=== PATIENT | female | born 1950 | race Caucasian/White ===

== ENCOUNTER → 2016-09-28 | Outpatient (CLI) | payer OTHER ==
[~2016-09-28] MED LIST: ADVAIR 250-501 EACH IH; ADVAIR HFA 230M12 GM INH; ADVAIRDISKUS; AGGRENOX CAPSU1 EACH PO; ALBUTEROL INH; ALLEGRA180 MG PO; ALLOPURINOL 30300 M2 PO; APEDRIA SC; APIDRA INSULIN PUMP; ASPIR 8181 MG PO; ASPIRIN325 PO; ASPIRIN81 M2 PO; AUGMENTIN 875875 M1 PO; B COMPLEX-VITA1 EACH PO; CALCIUM 600 +1 EAC1 PO; CARTIA XT300 M1 PO; CEFDINIR300 MG PO; CIPROFLOXACIN500 M3 GT; COLESTIPOL HCL1 G1 PO; COUMADIN 1MG TAB1 M1 PO; COUMADIN 5 MG TA5 M1 PO; DEMADEX20 MG PO; DEXILANT60 MG PO; DILTIAZEM 24HR300 M1 PO; DILTIAZEM ER300 MG PO; DIOVAN 80 MG TA80 M1 PO; DIOVAN320 MG PO; ELEMENTAL CALC600 MG PO; FERREX-150 PLU150 MG PO; FISH OIL 1,0001 EAC5 PO; FISH OIL 1,0001 EAC7 PO; FLONASE 0.05%50 MCG NASAL; FOSAMAX 70 MG T70 M1 PO; FUROSEMIDE 40 M40 M1 PO; GLUMETZA PO; HYDROCHLOROTHIA25 M1 PO; HYDROCHLOROTHIA25 M2 PO; HYDROCODON-ACE1 EAC7 PO; INSULIN SYRING MC; KLOR-CON 1010 MEQ PO; LANTUS SC; LIPITOR40 MG PO; LIVALO4 MG PO; LOPRESSOR 50 MG50 M1 PO; LOPRESSOR50 MG PO; LOVENOX PO; MAGNES; MAGOX 400400 MG PO; NITROFURANTOIN100 MG PO; NITROSTAT0.4 MG PO; OMEPRAZOLE40 MG PO; PERCOCET 5-3251 EACH PO; PHISOHEX148 ML TOP; PREDNISONE 10 M10 M1 PO; PROAIR HFA8.5 GM INH; REGLAN 10 MG TA10 M1 PO; REGLAN 10 MG TA10 MG PO; SINGULAIR 10 MG10 M1 PO; TOPROL XL50 MG PO; UNICOMPLEX M TA1 TA1 PO; VITAMIN C 250250 MG PO; VYTORIN 10-401 EACH PO; ZINC PO; ZYRTEC PO; ZYRTEC10 M2 PO; [UNRECOGNIZED DRUG - OTHER] SUBQ
== END ==
LOC: CAT
DX: J32.9 Chronic sinusitis, unspecified (principal)

== ENCOUNTER → 2017-12-19 | Outpatient (CLI) | payer OTHER | LOC: RAD 09:04 | DX: I51.7 Cardiomegaly (principal); J98.4 Other disorders of lung ==

== ENCOUNTER → 2019-01-07 | Outpatient (CLI) | payer OTHER | LOC: ULTRA 09:56 | DX: I82.511 Chronic embolism and thrombosis of right femoral vein (principal) ==

== ENCOUNTER → 2019-02-20 | Outpatient (CLI) | payer OTHER ==
[~2019-02-20] MED LIST changes: +ADMELOG100 UNIT/1 SUBQ; +ATORVASTATIN CA80 MG PO; +CARAFATE 1 GM TA1 GM PO; +COZAAR 25 MG TA25 M1 PO; +COZAAR 50 MG TA50 M1 PO; +METOPROLOL SUCC50 MG PO; +PEPCID40 MG PO; +REGLAN 5 MG TAB5 MG PO; +SPIRONOLACTONE25 MG PO; +VITAMIN D22000 UNIT PO; +XARELTO15 MG PO; +XARELTO20 MG PO
== END ==
LOC: SJCVC 10:30
DX: Z51.81 Encounter for therapeutic drug level monitoring (principal); I25.810 Atherosclerosis of coronary artery bypass graft(s) without angina pectoris; I10 Essential (primary) hypertension; K21.9 Gastro-esophageal reflux disease without esophagitis; E10.9 Type 1 diabetes mellitus without complications; J44.9 Chronic obstructive pulmonary disease, unspecified; M81.0 Age-related osteoporosis without current pathological fracture; E78.5 Hyperlipidemia, unspecified; E66.9 Obesity, unspecified; Z68.43 Body mass index [BMI] 50.0-59.9, adult; Z95.1 Presence of aortocoronary bypass graft; Z79.01 Long term (current) use of anticoagulants; Z79.82 Long term (current) use of aspirin; Z79.4 Long term (current) use of insulin; Z86.711 Personal history of pulmonary embolism; Z86.718 Personal history of other venous thrombosis and embolism

== ENCOUNTER → 2019-03-11 | Outpatient (CLI) | payer OTHER ==
[~2019-03-11] MED LIST changes: -ADMELOG100 UNIT/1 SUBQ; -ATORVASTATIN CA80 MG PO; -CARAFATE 1 GM TA1 GM PO; -COZAAR 25 MG TA25 M1 PO; -COZAAR 50 MG TA50 M1 PO; -METOPROLOL SUCC50 MG PO; -PEPCID40 MG PO; -REGLAN 5 MG TAB5 MG PO; -SPIRONOLACTONE25 MG PO; -VITAMIN D22000 UNIT PO; -XARELTO15 MG PO; -XARELTO20 MG PO
== END ==
LOC: SJCVCIMAG 08:21
DX: I87.2 Venous insufficiency (chronic) (peripheral) (principal); Z78.9 Other specified health status

== ENCOUNTER → 2019-03-28 | Outpatient (CLI) | payer OTHER | LOC: SJCVC 13:19 | DX: Z51.81 Encounter for therapeutic drug level monitoring (principal); I25.810 Atherosclerosis of coronary artery bypass graft(s) without angina pectoris; K21.9 Gastro-esophageal reflux disease without esophagitis; E11.9 Type 2 diabetes mellitus without complications; J44.9 Chronic obstructive pulmonary disease, unspecified; I10 Essential (primary) hypertension; M81.0 Age-related osteoporosis without current pathological fracture; E78.5 Hyperlipidemia, unspecified; E66.9 Obesity, unspecified; Z68.43 Body mass index [BMI] 50.0-59.9, adult; Z86.711 Personal history of pulmonary embolism; Z95.1 Presence of aortocoronary bypass graft ==

== ENCOUNTER → 2019-04-04 | Outpatient (CLI) | payer OTHER ==
[~2019-04-04] MED LIST changes: +ADMELOG100 UNIT/1 SUBQ; +ATORVASTATIN CA80 MG PO; +CARAFATE 1 GM TA1 GM PO; +COZAAR 25 MG TA25 M1 PO; +COZAAR 50 MG TA50 M1 PO; +METOPROLOL SUCC50 MG PO; +PEPCID40 MG PO; +REGLAN 5 MG TAB5 MG PO; +SPIRONOLACTONE25 MG PO; +VITAMIN D22000 UNIT PO; +XARELTO15 MG PO; +XARELTO20 MG PO
== END ==
LOC: SJCVC 10:42
DX: Z51.81 Encounter for therapeutic drug level monitoring (principal); K21.9 Gastro-esophageal reflux disease without esophagitis; E11.9 Type 2 diabetes mellitus without complications; J44.9 Chronic obstructive pulmonary disease, unspecified; I10 Essential (primary) hypertension; M81.0 Age-related osteoporosis without current pathological fracture; M19.90 Unspecified osteoarthritis, unspecified site; E78.5 Hyperlipidemia, unspecified; I25.810 Atherosclerosis of coronary artery bypass graft(s) without angina pectoris; E66.9 Obesity, unspecified; Z68.43 Body mass index [BMI] 50.0-59.9, adult; Z95.1 Presence of aortocoronary bypass graft; Z79.01 Long term (current) use of anticoagulants; Z86.711 Personal history of pulmonary embolism; Z79.899 Other long term (current) drug therapy; Z79.82 Long term (current) use of aspirin

== ENCOUNTER → 2019-04-07 | Outpatient (CLI) | payer OTHER ==
[2019-04-07 13:32] LABS: CREATININE 1.5 mg/dL (0.6-1.0)
== END ==
LOC: CAT 12:26
PROVIDERS: Nurse Practitioner
DX: J90 Pleural effusion, not elsewhere classified (principal); I25.10 Atherosclerotic heart disease of native coronary artery without angina pectoris; J84.10 Pulmonary fibrosis, unspecified; M47.814 Spondylosis without myelopathy or radiculopathy, thoracic region; M48.04 Spinal stenosis, thoracic region; K44.9 Diaphragmatic hernia without obstruction or gangrene; K42.9 Umbilical hernia without obstruction or gangrene; Z98.890 Other specified postprocedural states

== ENCOUNTER 2019-04-22 11:22 | Inpatient (IN) | payer OTHER ==
[~2019-04-22] VITALS: Ht 154.9 cm; Wt 112.0 kg
[~2019-04-22 11:22] MED LIST changes: -ADMELOG100 UNIT/1 SUBQ; -ATORVASTATIN CA80 MG PO; -CARAFATE 1 GM TA1 GM PO; -COZAAR 25 MG TA25 M1 PO; -COZAAR 50 MG TA50 M1 PO; -METOPROLOL SUCC50 MG PO; -PEPCID40 MG PO; -REGLAN 5 MG TAB5 MG PO; -SPIRONOLACTONE25 MG PO; -VITAMIN D22000 UNIT PO; -XARELTO15 MG PO; -XARELTO20 MG PO
[2019-04-22 11:24] VITALS: BP 135/62
[2019-04-22] MEDS ORDERED: COZAAR 25 MG TA25 M1 PO (12:02)
[2019-04-22] MEDS ORDERED: ADMELOG100 UNIT/1 SUBQ (12:04)
[2019-04-22] MEDS ORDERED: REGLAN 5 MG TAB5 MG PO (12:05)
[2019-04-22] MEDS ORDERED: PEPCID40 MG PO (12:05)
[2019-04-22] MEDS ORDERED: VITAMIN D22000 UNIT PO (12:07)
[2019-04-22] MEDS ORDERED: SPIRONOLACTONE25 MG PO (12:07)
[2019-04-22] MEDS ORDERED: CARAFATE 1 GM TA1 GM PO (12:07)
[2019-04-22 12:10] LABS: ABSOLUTE NEUTROPHILS 9.3 thou/uL (1.4-8.2); BASOPHILS 0.5 % (0.0-2.0); HEMATOCRIT 37.6 % (37.0-47.0); HEMOGLOBIN 11.7 gm/dL (12.0-15.0); LYMPHOCYTES 8.6 % (24.0-44.0); MCH 26.2 pg (26.0-34.0); MCHC 31.2 g/dL (28.0-37.0); MONOCYTES 8.6 % (1.0-8.0); PLATELET COUNT 318 thou/uL (150-400); POLYS 81.3 % (36.0-66.0); RBC 4.47 mil/uL (4.20-5.00); RDW 16.3 % (10.5-14.5); WBC 11.5 thou/uL (4.0-11.0)
[2019-04-22 12:20] LABS: APTT 30.2 Seconds (24.5-32.8); INR 1.4
[2019-04-22 12:22] LABS: ANION GAP 11 mmol/L (7-16); BUN 20 mg/dL (7-18); CALCIUM 8.6 mg/dL (8.5-10.1); CHLORIDE 102 mmol/L (98-107); CO2 22 mmol/L (21-32); CREATININE 1.4 mg/dL (0.6-1.0); GLUCOSE 191 mg/dL (74-106); POTASSIUM 4.8 mmol/L (3.5-5.1); SODIUM 135 mmol/L (136-145)
[2019-04-22 12:32] LABS: ALBUMIN 2.5 g/dL (3.4-5.0); SGOT 21 U/L (15-37); SGPT 8 U/L (30-65); TOTAL BILIRUBIN 0.5 mg/dL (<0.1-1.0); TOTAL PROTEIN 6.7 g/dL (6.4-8.2); TROPONIN-I <0.06 ng/mL (<0.06)
--- NOTE | 2019-04-22 14:30 | EKG ---
[facility] [address] [address] [employer] [place] [address] ELECTROCARDIOGRAM REPORT Name: JENNY DAVENPORT Room #: 170-9 ADM IN M.R.#: [id number] Admission: 04/22/19 Attend Phys: Michael Maxwell MD Discharge: Date of : 54 Report #: [id number] THIS REPORT FOR: cc: Michael Maxwell MD, Neal A. MD Lundgren,Juan Luis Lorenz MD [facility] ~ THIS REPORT FOR: //name// [facility] ED Test Date: 2019-04-22 Test Time: 11:34:10 Pat Name: JENNY DAVENPORT Department: Room: 170 Gender: F Continuous Improvement Director: RAZ : 1950 Requested By: Mychal Fitch Order Number: [id number] MD: Juan Luis Lopez Measurements Intervals Wall Rate: 97 P: 18 TX: 126 QRS: 5 QRSD: 85 T: 64 QT: 328 QTc: 417 Interpretive Statements Sinus tachycardia Poor R wave progression Nonspecific T wave abnormality Baseline wander in lead(s) II,III,aVF,V3,V4,V5 Compared to ECG 06/12/2012 07:30:28 Right bundle-branch block no longer present Electronically Signed On 04-22-2019 14:29:06 CDT by Juan Luis Lopez [email or web address] <ELECTRONICALLY SIGNED> By: Juan Luis Lopez MD, [facility] 04/22/19 1429 1134 1134 Juan Luis Lopez MD, [facility] /EPI
[2019-04-22 14:45] VITALS: BP 119/57
[2019-04-22 15:41] VITALS: BP 124/55
[2019-04-22 16:10] VITALS: BP 143/47
--- NOTE | 2019-04-22 17:11 | 2DMMODE ---
[facility] [place] [address] 2 D/M-MODE ECHOCARDIOGRAM Name: JENNY DAVENPORT Room #: 208-P ADM IN M.R.#: [id number] Admission: 04/22/19 Attend Phys: Michael Maxwell MD Discharge: Date of : 54 Report #: [id number] THIS REPORT FOR: cc: Michael Maxwell MD, Neal A. MD Lundgren,Juan Luis Lorenz MD [facility] ~ APPROVED REPORT Study performed: 04/22/2019 15:27:59 EXAM: Comprehensive 2D, Doppler, and color-flow Echocardiogram Patient Location: ER Room #: 9 Status: routine BSA: 2.09 HR: 86 bpm BP: 124/55 mmHg Rhythm: NSR Other Information Study Quality: Adequate Technically limited study due to body habitus. Risk Factors: Cardiac Risk Factors: DM, Hyperlipidemia, HTN Indications Pulmonary Embolism CAD Hypertension/HDD S/P CABG x1 (2013) 2D Dimensions IVSd: 12.14 (7-11mm) LVOT Diam: 19.00 (18-24mm) LVDd: 42.88 mm PWd: 11.86 (7-11mm) Ascending Ao: 31.33 (22-36mm) LVDs: 31.72 (25-40mm) Aortic Root: 31.10 mm LV Single Plane 4CH: 50.49 % LV Single Plane 2CH: 54.21 % Volumes Left Atrial Volume (Systole) Single Plane 4CH: 39.44 mL Single Plane 2CH: 33.34 mL [facility] [address] [place] [address] 2 D/M-MODE ECHOCARDIOGRAM Name: JENNY DAVENPORT Room #: 208-P ADM IN M.R.#: [id number] Admission: 04/22/19 Attend Phys: Michael Maxwell, Discharge: Date of : 54 Report #: [id number] ESV Index: 20.00 mL/m2 Aortic Valve AoV Peak Candelario.: 1.60 m/s AO Peak Gr.: 10.24 mmHg LVOT Max P.42 mmHg LVOT Max V: 1.05 m/s KAROL Vmax: 1.82 cm2 Mitral Valve E/A Ratio: 0.8 MV Decel. Time: 179.23 ms MV E Max Candelario.: 1.12 m/s MV A Candelario.: 1.37 m/s MV PHT: 51.98 ms IVRT: 65.74 ms TDI E/Lateral E': 14.00 E/Medial E': 22.40 Medial E' Candelario.: 0.05 m/s Lateral E' Candelario.: 0.08 m/s Pulmonary Valve PV Peak Candelario.: 1.06 m/s PV Peak Gr.: 4.49 mmHg Pulmonary Vein P Vein S: 0.68 m/s P Vein A: 0.24 m/s P Vein D: 0.47 m/s P Vein A Dur.: 69.2 msec P Vein S/D Ratio: 1.45 Tricuspid Valve TR Peak Candelario.: 2.73 m/s TR Peak Gr.: 29.81 mmHg Left Ventricle The left ventricle is normal size. There is normal LV segmental wall motion. Mild concentric left ventricular hypertrophy. Left ventricular systolic function is normal. The left ventricular ejection fraction is within the normal range. LVEF is 50-55%. Mild diastolic dysfunction is present (impaired relaxation pattern). Right Ventricle The right ventricle is normal size. The right ventricular systolic function is normal. [facility] [address] [place] [address] 2 D/M-MODE ECHOCARDIOGRAM Name: JENNY DAVENPORT Room #: 208-P [facility] IN M.R.#: [id number] Admission: 04/22/19 Attend Phys: Michael Maxwell, Discharge: Date of : 54 Report #: [id number] The left atrium size is normal. The right atrium size is normal. Aortic Valve The aortic valve is normal in structure. No aortic regurgitation is present. There is no aortic valvular stenosis. Mitral Valve The mitral valve is normal in structure. There is no mitral valve regurgitation noted. No evidence of mitral valve stenosis. Tricuspid Valve The tricuspid valve is normal in structure. Mild tricuspid insufficiency. Pulmonary artery pressure of 35 mmHg Pulmonic Valve The pulmonary valve is normal in structure. Trace pulmonic regurgitation. Great Vessels The aortic root is normal in size. The ascending aorta is normal in size. IVC is not well visualized. Pericardium There is no pericardial effusion. <Conclusion> Left ventricular systolic function is normal. There is normal LV segmental wall motion. LVEF is 50-55%. Mild diastolic dysfunction The aortic valve is normal in structure. No aortic regurgitation or stenosis The mitral valve is normal in structure. No mitral valve regurgitation. Mild tricuspid insufficiency. Pulmonary artery pressure of 35 mmHg There is no pericardial effusion. <ELECTRONICALLY SIGNED> By: Juan Luis Lopez MD, FACC 04/22/191709 09 09 Juan Luis Lopez MD, FACC /INF
[2019-04-22 20:24] VITALS: BP 143/53
[2019-04-23] VITALS: BP 122/57
[2019-04-23 03:01] LABS: HEMATOCRIT 33.9 % (37.0-47.0); HEMOGLOBIN 10.7 gm/dL (12.0-15.0); MCH 26.4 pg (26.0-34.0); MCHC 31.6 g/dL (28.0-37.0); MCV 83.6 fL (80.0-100.0); RBC 4.06 mil/uL (4.20-5.00); RDW 16.3 % (10.5-14.5); WBC 9.3 thou/uL (4.0-11.0)
[2019-04-23 03:06] LABS: CALCIUM 8.5 mg/dL (8.5-10.1); CREATININE 1.4 mg/dL (0.6-1.0); POTASSIUM 4.3 mmol/L (3.5-5.1)
[2019-04-23 05:17] VITALS: BP 160/79
[2019-04-23 11:30] VITALS: BP 135/50
[2019-04-23 16:00] VITALS: BP 132/46
[2019-04-23 20:02] VITALS: BP 115/37
[2019-04-24] VITALS (8 sets, daily range): BP systolic 109–157; BP diastolic 47–83
[2019-04-24 10:48] LABS: INR 1.2; PROTIME 12.5 Seconds (9.3-11.4)
[2019-04-24 11:10] LABS: APTT 29.4 Seconds (24.5-32.8)
[2019-04-25 04:45] VITALS: BP 152/71
[2019-04-25 08:10] VITALS: BP 142/72
[2019-04-25 11:25] VITALS: BP 132/55
[2019-04-25 14:16] LABS: HEMATOCRIT 34.1 % (37.0-47.0); MCH 26.7 pg (26.0-34.0); MCHC 32.1 g/dL (28.0-37.0); MCV 83.3 fL (80.0-100.0); RBC 4.1 mil/uL (4.20-5.00); RDW 16.6 % (10.5-14.5); WBC 9.7 thou/uL (4.0-11.0)
[2019-04-25] MEDS ORDERED: METOPROLOL SUCC50 MG PO (14:25)
[2019-04-25] MEDS ORDERED: COZAAR 50 MG TA50 M1 PO (14:25)
[2019-04-25] MEDS ORDERED: ATORVASTATIN CA80 MG PO (14:25)
[2019-04-25] MEDS ORDERED: DEMADEX20 MG PO (14:25)
[2019-04-25] MEDS ORDERED: XARELTO20 MG PO ×2 (14:31→15:37)
[2019-04-25] MEDS ORDERED: XARELTO15 MG PO ×2 (14:31→15:37)
[2019-04-25 15:05] VITALS: BP 132/55
--- NOTE | 2019-04-29 15:08 | PATH ---
[facility] [address] [place] [address] PATHOLOGY RPT PROCEDURE Name: UTE DAVENPORT Room #: 208-P DIS IN M.R.#: [id number] Admission: 04/22/19 Date of : 54 Discharge: 04/25/19 Report #: [id number] Path Case #: [id number] [facility] Accession Number: [id number] . 01 Material submitted: . liver - FOCAL LIVER MASS . 01 Clinical history: . Bilateral PE; focal liver mass . 02 Diagnosis: Liver mass, needle core biopsy: - FINDINGS COMPATIBLE WITH MODERATE TO POORLY-DIFFERENTIATED HEPATOCELLULAR CARCINOMA ASSOCIATED WITH ABUNDANT NECROSIS. - One fragment showing renal glomeruli and tubules compatible with renal cortex; negative for malignancy. - Fragments of reactive mature adipose tissue; negative for malignancy. . (IUV:mml; 04/29/2019) QL 04/29/2019 1427 Local . 02 Comment: Examination shows malignant epithelioid neoplasm and intervening large areas of necrosis. Unremarkable hepatic (non-neoplastic hepatic) parenchyma is not identified. . Multiple properly-controlled immunohistochemical stains are performed on block A3. The tumor shows weak reactivity with Glypican in scattered foci. Polyclonal CEA is reactive within most of the neoplasm. Hep-Par, TTF-1, CD117 are non-reactive. CK7 shows strong membranous reactivity within the neoplasm consistent with the diagnosis of carcinoma. Properly-controlled special stain colloidal iron shows no reactivity (iron staining) within the neoplasm. Findings are supportive of a moderately to poorly differentiated hepatocellular carcinoma. A neoplasm of renal origin is excluded with the non-reactive immunohistochemical stains along with a metastatic lung adenocarcinoma. . Dr. Yessi Cooper and Dr. Amelia Holland have seen strategic partnership representative slides of this case and concur with the diagnosis rendered. Findings of this case were discussed with Dr. Karl Maldonado at 12:20 p.m. on 04/25/2019. . (IUV:mml; 04/29/2019) . 02 Electronically signed: . Heike Hahn MD, Pathologist NPI- [id number] . [address] [place] [address] PATHOLOGY RPT PROCEDURE Name: UTE DAVENPORT Room #: 208-P DIS IN M.R.#: [id number] Admission: 04/22/19 Date of : 54 Discharge: 04/25/19 Report #: [id number] Path Case #: [id number] Gross description: . The specimen is received in formalin, labeled "Ute Davenport, focal liver biopsy". Received are four needle cores of pale lpummer soft tissue ranging in length from 0.9 to 1.8 cm in length by 0.1 cm in diameter. The specimen is submitted entirely in cassette A1 through A3. (CAA; 04/24/2019) QAC/QAC 04/24/2019 1725 Local . 02 Pathologist provided ICD-10: C22.9 . 02 CPT . 042033, C33820, A45051 Specimen Comment: A courtesy copy of this report has been sent to [phone] Specimen Comment: Report sent to Performed at: [address], [place] [id number] MD Chapin Espino MD Phone: [phone] Performed at: [address] [id number] MD Heike Hahn MD Phone: [phone]
== END 2019-04-25 16:58 | disposition home or self-care (01) | DRG 175 ==
LOC: ER 11:22 → 2N 14:27 → EROBS 14:27 → 2N 15:41
PROVIDERS: Emergency Medicine; Internal Medicine Pulmonary Disease; ADMIT Family Medicine
PROC: 0FB13ZX Excision of Right Lobe Liver, Percutaneous Approach, Diagnostic (ICD-10-PCS; principal; 2019-04-24)
DX: I26.99 Other pulmonary embolism without acute cor pulmonale (principal); E43 Unspecified severe protein-calorie malnutrition; N17.9 Acute kidney failure, unspecified; Z68.42 Body mass index [BMI] 45.0-49.9, adult; I25.10 Atherosclerotic heart disease of native coronary artery without angina pectoris; R91.8 Other nonspecific abnormal finding of lung field; K21.9 Gastro-esophageal reflux disease without esophagitis; J45.909 Unspecified asthma, uncomplicated; I48.0 Paroxysmal atrial fibrillation; E78.5 Hyperlipidemia, unspecified; I27.20 Pulmonary hypertension, unspecified; G47.33 Obstructive sleep apnea (adult) (pediatric); E11.22 Type 2 diabetes mellitus with diabetic chronic kidney disease; I12.9 Hypertensive chronic kidney disease with stage 1 through stage 4 chronic kidney disease, or unspecified chronic kidney disease; N18.3 Chronic kidney disease, stage 3 (moderate); D64.9 Anemia, unspecified; R16.0 Hepatomegaly, not elsewhere classified; J44.9 Chronic obstructive pulmonary disease, unspecified; Z86.718 Personal history of other venous thrombosis and embolism; Z79.01 Long term (current) use of anticoagulants; Z90.710 Acquired absence of both cervix and uterus; Z90.89 Acquired absence of other organs; Z79.4 Long term (current) use of insulin; Z90.49 Acquired absence of other specified parts of digestive tract; I25.2 Old myocardial infarction; Z95.5 Presence of coronary angioplasty implant and graft; Z86.711 Personal history of pulmonary embolism; Z79.82 Long term (current) use of aspirin; Z79.899 Other long term (current) drug therapy; Z88.2 Allergy status to sulfonamides; Z88.8 Allergy status to other drugs, medicaments and biological substances; Z91.040 Latex allergy status; Z95.1 Presence of aortocoronary bypass graft
CPT/HCPCS: 10081

== ENCOUNTER → 2019-05-19 | Outpatient (CLI) | payer OTHER ==
[~2019-05-19] MED LIST changes: +ADMELOG100 UNIT/1 SUBQ; +ATORVASTATIN CA80 MG PO; +CARAFATE 1 GM TA1 GM PO; +COZAAR 25 MG TA25 M1 PO; +COZAAR 50 MG TA50 M1 PO; +METOPROLOL SUCC50 MG PO; +PEPCID40 MG PO; +REGLAN 5 MG TAB5 MG PO; +SPIRONOLACTONE25 MG PO; +VITAMIN D22000 UNIT PO; +XARELTO15 MG PO; +XARELTO20 MG PO
== END ==
LOC: SJCVCIMAG 13:27
DX: R94.31 Abnormal electrocardiogram [ECG] [EKG] (principal); I07.1 Rheumatic tricuspid insufficiency; I11.9 Hypertensive heart disease without heart failure; I26.99 Other pulmonary embolism without acute cor pulmonale; E78.5 Hyperlipidemia, unspecified; I82.409 Acute embolism and thrombosis of unspecified deep veins of unspecified lower extremity; I25.10 Atherosclerotic heart disease of native coronary artery without angina pectoris; E11.9 Type 2 diabetes mellitus without complications; J44.9 Chronic obstructive pulmonary disease, unspecified; I48.91 Unspecified atrial fibrillation; Z95.1 Presence of aortocoronary bypass graft

== ENCOUNTER 2019-06-09 10:10 | Inpatient (IN) | payer OTHER ==
[~2019-06-09] VITALS: Ht 149.9 cm; Wt 109.8 kg
[2019-06-09 10:24] VITALS: BP 123/48
[2019-06-09 11:24] LABS: ABSOLUTE NEUTROPHILS 7.8 thou/uL (1.4-8.2); WBC 9.9 thou/uL (4.0-11.0)
[2019-06-09 11:26] LABS: BASOPHILS 0.5 % (0.0-2.0); HEMATOCRIT 34.4 % (37.0-47.0); HEMOGLOBIN 11.1 gm/dL (12.0-15.0); MCH 26.2 pg (26.0-34.0); MCHC 32.2 g/dL (28.0-37.0); MCV 81.4 fL (80.0-100.0); MONOCYTES 9.3 % (1.0-8.0); PLATELET COUNT 414 thou/uL (150-400); POLYS 79.2 % (36.0-66.0); RBC 4.23 mil/uL (4.20-5.00); RDW 17.1 % (10.5-14.5)
[2019-06-09 11:29] LABS: ANION GAP 10 mmol/L (7-16); BUN 24 mg/dL (7-18); CALCIUM 7.9 mg/dL (8.5-10.1); CHLORIDE 105 mmol/L (98-107); CO2 20 mmol/L (21-32); CREATININE 1.5 mg/dL (0.6-1.0); GLUCOSE 113 mg/dL (74-106); POTASSIUM 4.5 mmol/L (3.5-5.1); SODIUM 135 mmol/L (136-145)
[2019-06-09 11:39] LABS: ALBUMIN 1.9 g/dL (3.4-5.0); SGOT 17 U/L (15-37); SGPT 10 U/L (30-65); TOTAL BILIRUBIN 0.5 mg/dL (<0.1-1.0); TROPONIN-I <0.06 ng/mL (<0.06)
[2019-06-09 11:48] LABS: BE(vivo) -6.5 mmol/L (-2 to +3); HCO3 17.6 mmol/L (22.0-26.0); PCO2 VENOUS 30.5 mmHg (41.0-51.0); PO2 VENOUS 43.1 mmHg (35.0-45.0)
[2019-06-09 13:30] VITALS: BP 106/53
[2019-06-09 13:43] VITALS: BP 106/53
[2019-06-09 14:23] VITALS: BP 147/48
[2019-06-09 20:04] VITALS: BP 127/60
--- NOTE | 2019-06-10 02:54 | NUR ---
PATIENT ASSESASED AND IS ALERT X 4. SKIN WARM AND DRY. RESP EVEN AND UNLABORED.IS SOA. 02 SAT 100%. 02 STARTED AT 2LNC. UP AD CHERRIE IN ROOM. SHE HAS BEEN SOA FOR 1 MONTH. WILL HAVE A RIGHT THORACENTESIS IN AM. HAS A POOR APPETITE. COVID CAME BACK TODAY NEGATIVE. NOTIFIED AND INSPECTOR FINAL ASSEMBLY MECHANICAL. INSULIN PUMP IS OFF ED TAKEN IT OFF.IS ON CC TELE. TELE-SHOWS NSR. MHAS A SHALLOW RESPIRATIONS. VOIDS WELL. IV SITE HEALTHY. DOES USE BIMPAP AT HOME. REMAINS ON 2LNC. LESS SOA AFTER 02 STARTED. BLOOD SUGAR IS 354. 20 UNITS GIVEN PER PROTOCOL. REMAINS ALERT X4. RESTING READY FOR BED. TAKES MEDIATION WELL. COMNT PLAN OF CARE. LEFT EJ PATENT. AND FLUSHES WELL.
[2019-06-10 04:00] VITALS: BP 121/50
--- NOTE | 2019-06-10 07:58 | EKG ---
[facility] [place] [address] ELECTROCARDIOGRAM REPORT Name: JENNY DAVENPORT Room #: 357-P ADM IN M.R.#: [id number] Admission: 06/09/19 Attend Phys: Michael Maxwell MD Discharge: Date of : 54 Report #: [id number] THIS REPORT FOR: cc: Michael Maxwell MD, Neal A. MD Lundgren,Juan Luis Lorenz MD [facility] ~ THIS REPORT FOR: //name// [facility] ED Test Date: 2019-06-09 Test Time: 10:44:05 Pat Name: JENNY DAVENPORT Department: Room: Gender: F Preassembler [employer]: nina : 1950 Requested By: Mychal Fitch Order Number: [id number] MD: Juan Luis Lopez Measurements Intervals [place]ell Rate: 87 P: -8 FL: 163 QRS: -6 QRSD: 83 T: 57 QT: 401 QTc: 483 Interpretive Statements Sinus rhythm Low voltage Nonspecific T abnormalities, anterior leads Compared to ECG 04/22/2019 11:34:10 No significant change was found Electronically Signed On 06-10-2019 7:56:27 CDT by Juan Luis Lopez [email or web address] <ELECTRONICALLY SIGNED> By: Juan Luis Lopez MD, [facility] 06/10/19 0756 1044 1044 Juan Luis Lopez MD, [facility] /EPI
[2019-06-10 08:07] VITALS: BP 103/47
[2019-06-10 11:20] LABS: APTT 41.3 Seconds (24.5-32.8); FIBRINOGEN 383.5 mg/dL (210-360); INR 1.7; PROTIME 17.4 Seconds (9.3-11.4)
--- NOTE | 2019-06-10 13:30 | NUR ---
INITIAL ASSESSMENT: SW reviewed chart and spoke with nursing. Pt was admitted from home due to shortness of air/stomach pain. Pt is in Enhanced Isolation. COVID-19 test is negative. Pt with hx of lung cancer. Pt to have a thoracentesis tomorrow. SW spoke with pt via phone. Introduced role of SW. Pt is alert/orientated x 4. Pt reports she lives at home with her and dtr. Prior to admission, pt was independent with ADLs. No us of DME. Pt's PCP is Dr. Maxwell. Pt has used HH in the past many years ago. Unable to recall name of provider. Pt's plan is to discharge home when medically stable. SW is following to assist as needed with discharge planning.
--- NOTE | 2019-06-10 19:19 | NUR ---
Assumed patient care at 0715. Patient's vitals signs have been stable. She has been on Room Air until approximately 1500. At this time she began to complain of "stomach bloat" and "discomfort" related to this and she began to get anxious. This nurse applied O2 at 2 Liters per nasal cannula; this has been helpful. Patient is CC Tele with Normal Sinus Rythym. IV continues as patent in left EJ. She is alert and oriented x's 4. Patient has been up ad vincenzo. Results "Negative" for COVID Virus x's 1; she is no longer on Special Precautions. Blood Sugars have been in the 230's to 250's, requiring Sliding Scale Insulin as ordered. Appetite was good this am, has decreased throughout the day from the abdominal discomfort. Xalreto discontinued for the time being. Patient is to have a Thoracentesis tomorrow am. Report given to on-coming nurse.
[2019-06-10 19:21] VITALS: BP 125/44
--- NOTE | 2019-06-10 20:07 | NUR ---
PT SITTING IN BED WATCHING TV REPORTED FEELING RESTLESS BLOATED AND . PT INDEPENDENT WITH AMBULATION. O2 PER NC FOR ANXIETY. OBESE, BLE EDEMA +3, RLE +4. LUNGS DIMINISHED IN BASES. DR CABRAL PAGED AND PRRamírez ATIVAN ORDER OBTAINED AND STAT KUB. PT REQUESTED COFFEE AND PROVIDED. PT SMILING TALKING NOT SOA WITH CONVERSATION. WILL TRANSFER TO LATER THIS SHIFT.
--- NOTE | 2019-06-10 21:26 | NUR ---
REPORT GIVEN TO Sendy MIDDLETON. PT HAD ALL OF HER BELONGINGS RETURNED TO HER.
[2019-06-11 00:07] VITALS: BP 150/57
[2019-06-11 04:36] VITALS: BP 136/53
[2019-06-11 08:00] VITALS: BP 138/46
[2019-06-11 10:23] LABS: SOURCE CHEST FLUID
[2019-06-11 10:25] LABS: TOTAL VOLUME 60 mL
[2019-06-11 10:28] LABS: CLARITY CLOUDY; COLOR YELLOW
[2019-06-11 10:50] LABS: BF NUCLEATED CELLS 3269; BF RBC 10309
--- NOTE | 2019-06-11 10:51 | NUR ---
THORACENTESIS REMOVES 800ML OF FLUID THIS A.M. SHE REMAINS SOB ON 6L WITH MINIMAL ACTIVITY, EVEN WITH SPEECH. POSSIBLE ENDOSCOPY IN THE A.M., THEN POSSIBLY DISCHARGING TO HOME. SR PER TELE. STRICT I&O. ASSISTED TO BEDSIDE CHAIR FOR LUNCH. WILL CONTINUE TO FOLLOW CLOSELY.
[2019-06-11 12:00] VITALS: BP 120/54
[2019-06-11 12:15] LABS: SOURCE CHEST
[2019-06-11 14:33] LABS: BF MACROPHAGE 75; BF NEUTROPHILS 0
[2019-06-11 17:00] VITALS: BP 112/61
[2019-06-11 20:29] VITALS: BP 109/42
--- NOTE | 2019-06-12 03:22 | NUR ---
ASSUMED PT CARE AROUND 1930. AXOX4. INDEPENDENT WITH ADLs. CALLS APPROPIRATELY WHEN ASSISTANCE IS REQUIRED. KEPT NPO FOR EGD IN AM. VSS. NO S/S ACUTE DISTRESS NOTED OR REPORTED AT THIS TIME. WILL CONT TO MONITOR FOR ANY CHANGES IN CONDITION.
[2019-06-12 04:06] VITALS: BP 140/56
--- NOTE | 2019-06-12 08:26 | NUR ---
PT TAKEN OFF UNIT FOR EGD AT CHANGE OF SHIFT. WILL ASSESS PT WHEN RETURNS.
[2019-06-12 08:45] VITALS: BP 127/58
[2019-06-12 11:55] VITALS: BP 128/43
[2019-06-12 15:12] VITALS: BP 128/43
--- NOTE | 2019-06-12 15:49 | NUR ---
Pt dcing home this afternoon with family. Weaned off oxygen. Scoped this am. Up ad vincenzo in her room. No dc needs identified.
--- NOTE | 2019-06-12 16:01 | NUR ---
PT WENT FOR EGD THIS AM AND FOUND GASTRITIS. HAD A LOT OF GAS AND BELCHING AFTER. HAS WEANED OFF O2. DR. CABRAL IN AND DISCHARGED PT AFTER LUNCH. DISCHARGE INSTRUCTIONS GIVEN AND COMING TO TAKE HER HOME.
--- NOTE | 2019-06-13 15:08 | PATH ---
[facility] [address] [place] [address] PATHOLOGY RPT PROCEDURE Name: UTE DAVENPORT Room #: 207-P DIS IN M.R.#: [id number] Admission: 06/09/19 Date of : 54 Discharge: 06/12/19 Report #: [id number] Path Case #: [id number] [facility] Accession Number: [id number] . 01 Material submitted: . stomach - BIOPSY OF ANTRUM R/O H. PYLORI . 01 Clinical history: . Dysphagia; abdominal pain; R/O H. pylori . 02 Diagnosis: Gastric mucosa, antrum rule out H. pylori, endoscopic biopsy: - Mild active gastritis showing features of reactive gastropathy. - Negative for intestinal metaplasia or atrophy. - Negative for Helicobacter pylori (properly controlled immunohistochemical stain performed). (IUV:cori; 06/13/2019) MBTrena 06/13/2019 1405 Local . 02 Comment: An intensive search for Helicobacter pylori-like organisms is negative. Absence of such organisms does not entirely exclude the possibility and may be due to sampling. Other possible etiologies may include chemical gastritis, autoimmune gastritis, gastritis associated with inflammatory bowel disease. Please correlate with clinical, endoscopic, and microbiological studies if clinically indicated. (IUV:manager mba; 06/13/2019) . . 02 Electronically signed: . Heike Hahn MD, Pathologist NPI- [id number] . 01 Gross description: . The specimen is received in formalin, labeled "Ute Davenport, biopsy of antrum, R/O H. pylori". Received are two segments of pale plummer soft tissue ranging in size from 0.2 to 0.3 cm in maximum dimensions. The specimen is submitted entirely in cassette A1. (CAA; 06/12/2019) QAC/QA 06/12/2019 1731 Local . 02 Pathologist provided ICD-10: K29.70 . 02 CPT . 424274, G72209 Specimen Comment: A courtesy copy of this report has been sent to [phone], [place] [address] PATHOLOGY RPT PROCEDURE Name: UTE DAVENPORT Room #: 207-P DIS IN M.R.#: [id number] Admission: 06/09/19 Date of : 54 Discharge: 06/12/19 Report #: [id number] Path Case #: [id number] Specimen Comment: [id number] Specimen Comment: Report sent to / DR CABRAL Performed at: [address], [place], [place] [id number] MD Chapin Espino MD Phone: [phone] Performed at: [address] [id number] MD Heike Hahn MD Phone: [phone]
[2019-06-13 18:08] LABS: BODY FLUID ALBUMIN 1.5 g/dL (Not Estab.); BODY FLUID AMYLASE 12 U/L (()); BODY FLUID GLUCOSE 206 mg/dL (()); BODY FLUID LDH 295 IU/L (()); BODY FLUID PROTEIN 2.8 g/dL (())
--- NOTE | 2019-06-16 14:08 | PATH ---
[facility] [address] [place] [address] PATHOLOGY RPT PROCEDURE Name: JENNY DAVENPORT Room #: 207-P DIS IN M.R.#: [id number] Admission: 06/09/19 Date of : 54 Discharge: 06/12/19 Report #: [id number] Path Case #: [id number] Note [facility] Accession Number: [id number] TESTS RESULT FLAG UNITS REF RANGE LAB Clinician Provided Cytology Information No. of containers..01 Other (Miscellaneous) Source: RT PLEURAL FLUID DIAGNOSIS: RT PLEURAL FLUID NEGATIVE FOR MALIGNANT EPITHELIAL CELLS. REACTIVE MESOTHELIAL CELLS ARE PRESENT. THIS INTERPRETATION INCLUDES EVALUATION OF A CELL BLOCK. Pathologist ICD10: 02 R06.02 Signed out by: 02 Heike Hahn MD, Pathologist NPI- [id number] Performed by: Gera Baker, Radiology Supervisor ([facility]) Gross description: 01 15ML, CLOUDY ORANGE, 1TP 1CB /LCS 06/11/2019 1317 Local FLAG LEGEND: L-Low Normal,H-High Normal,LL-Alert Low,HH-Alert High <-Panic Low,>-Panic High,A-Abnormal,AA-Critical Abnormal Performed at: [address] [place] [address] Chapin Espino MD, [address] [address] Heike Hahn MD, Specimen Comment: A courtesy copy of this report has been sent to [phone] Specimen Comment: Report sent to Specimen Comment: A duplicate report has been generated due to demographic updates. Performed at: [address], [place], [place] [id number] MD Chapin Espino MD Phone: [phone]
== END 2019-06-12 16:33 | disposition home or self-care (01) | DRG 73 ==
LOC: ER 10:10 → 3W 12:27 → ER 13:45 → 3W 13:45 → 2N 06-10 22:07
PROVIDERS: Emergency Medicine; ADMIT Family Medicine
PROC: 5A09357 Assistance with Respiratory Ventilation, Less than 24 Consecutive Hours, Continuous Positive Airway Pressure (ICD-10-PCS; principal; 2019-06-11)
PROC: 0W993ZZ Drainage of Right Pleural Cavity, Percutaneous Approach (ICD-10-PCS; principal; 2019-06-11)
PROC: 5A09357 Assistance with Respiratory Ventilation, Less than 24 Consecutive Hours, Continuous Positive Airway Pressure (ICD-10-PCS; 2019-06-12)
PROC: 0D758ZZ Dilation of Esophagus, Via Natural or Artificial Opening Endoscopic (ICD-10-PCS; 2019-06-12)
PROC: 0DB68ZX Excision of Stomach, Via Natural or Artificial Opening Endoscopic, Diagnostic (ICD-10-PCS; 2019-06-12)
DX: E11.43 Type 2 diabetes mellitus with diabetic autonomic (poly)neuropathy (principal); J96.01 Acute respiratory failure with hypoxia; E43 Unspecified severe protein-calorie malnutrition; J18.9 Pneumonia, unspecified organism; J90 Pleural effusion, not elsewhere classified; C25.9 Malignant neoplasm of pancreas, unspecified; C22.8 Malignant neoplasm of liver, primary, unspecified as to type; Z68.42 Body mass index [BMI] 45.0-49.9, adult; K29.70 Gastritis, unspecified, without bleeding; K31.84 Gastroparesis; I25.10 Atherosclerotic heart disease of native coronary artery without angina pectoris; K21.9 Gastro-esophageal reflux disease without esophagitis; G47.33 Obstructive sleep apnea (adult) (pediatric); N18.9 Chronic kidney disease, unspecified; E11.22 Type 2 diabetes mellitus with diabetic chronic kidney disease; K52.9 Noninfective gastroenteritis and colitis, unspecified; J45.909 Unspecified asthma, uncomplicated; E66.01 Morbid (severe) obesity due to excess calories; R13.10 Dysphagia, unspecified; K22.2 Esophageal obstruction; Z86.718 Personal history of other venous thrombosis and embolism; Z90.710 Acquired absence of both cervix and uterus; Z90.49 Acquired absence of other specified parts of digestive tract; I25.2 Old myocardial infarction; Z86.73 Personal history of transient ischemic attack (TIA), and cerebral infarction without residual deficits; Z86.711 Personal history of pulmonary embolism; Z88.2 Allergy status to sulfonamides; Z88.8 Allergy status to other drugs, medicaments and biological substances; Z91.040 Latex allergy status; Z95.1 Presence of aortocoronary bypass graft; Z79.82 Long term (current) use of aspirin; Z79.899 Other long term (current) drug therapy; Z82.49 Family history of ischemic heart disease and other diseases of the circulatory system
CPT/HCPCS: 10080; 10081; 10879; 62110; 62900

== ENCOUNTER → 2019-06-20 | Outpatient (CLI) | payer OTHER | LOC: SJCVC 10:24 | DX: Z51.81 Encounter for therapeutic drug level monitoring (principal); K21.9 Gastro-esophageal reflux disease without esophagitis; E11.9 Type 2 diabetes mellitus without complications; J44.9 Chronic obstructive pulmonary disease, unspecified; I10 Essential (primary) hypertension; M81.0 Age-related osteoporosis without current pathological fracture; E66.9 Obesity, unspecified; Z79.01 Long term (current) use of anticoagulants; Z79.82 Long term (current) use of aspirin; Z79.899 Other long term (current) drug therapy; Z95.1 Presence of aortocoronary bypass graft; Z86.711 Personal history of pulmonary embolism ==

== ENCOUNTER → 2019-06-23 | Outpatient (CLI) | payer OTHER | LOC: SJCVC 11:39 | DX: Z51.81 Encounter for therapeutic drug level monitoring (principal); I25.810 Atherosclerosis of coronary artery bypass graft(s) without angina pectoris; K21.9 Gastro-esophageal reflux disease without esophagitis; E11.9 Type 2 diabetes mellitus without complications; J44.9 Chronic obstructive pulmonary disease, unspecified; I10 Essential (primary) hypertension; M81.0 Age-related osteoporosis without current pathological fracture; E78.5 Hyperlipidemia, unspecified; E66.9 Obesity, unspecified; Z79.01 Long term (current) use of anticoagulants; Z79.4 Long term (current) use of insulin; Z79.82 Long term (current) use of aspirin; Z95.1 Presence of aortocoronary bypass graft; Z79.899 Other long term (current) drug therapy ==

== ENCOUNTER → 2019-06-26 | Outpatient (CLI) | payer OTHER | LOC: RAD 08:07 | DX: J90 Pleural effusion, not elsewhere classified (principal); J45.50 Severe persistent asthma, uncomplicated; J98.11 Atelectasis ==

== ENCOUNTER → 2019-07-01 | Outpatient (CLI) | payer OTHER | LOC: SJCVC 11:10 | DX: Z51.81 Encounter for therapeutic drug level monitoring (principal); I25.10 Atherosclerotic heart disease of native coronary artery without angina pectoris; G47.33 Obstructive sleep apnea (adult) (pediatric); D68.59 Other primary thrombophilia; I10 Essential (primary) hypertension; R06.02 Shortness of breath; I89.0 Lymphedema, not elsewhere classified; I26.99 Other pulmonary embolism without acute cor pulmonale; I82.409 Acute embolism and thrombosis of unspecified deep veins of unspecified lower extremity; D64.9 Anemia, unspecified; Z79.01 Long term (current) use of anticoagulants; Z78.9 Other specified health status; Z99.89 Dependence on other enabling machines and devices ==

== ENCOUNTER → 2019-07-04 | Outpatient (CLI) | payer OTHER | LOC: SJCVC 10:20 | PROVIDERS: ATTEND Internal Medicine Cardiovascular Disease | DX: Z51.81 Encounter for therapeutic drug level monitoring (principal); K21.9 Gastro-esophageal reflux disease without esophagitis; E11.9 Type 2 diabetes mellitus without complications; J44.9 Chronic obstructive pulmonary disease, unspecified; I10 Essential (primary) hypertension; I25.10 Atherosclerotic heart disease of native coronary artery without angina pectoris; Z68.54 Body mass index [BMI] pediatric, 95th percentile for age to less than 120% of the 95th percentile for age; Z79.01 Long term (current) use of anticoagulants ==

== ENCOUNTER → 2019-07-07 | Outpatient (CLI) | payer OTHER | LOC: SJCVC 10:38 | DX: Z51.81 Encounter for therapeutic drug level monitoring (principal); K21.9 Gastro-esophageal reflux disease without esophagitis; E11.9 Type 2 diabetes mellitus without complications; J45.909 Unspecified asthma, uncomplicated; E78.5 Hyperlipidemia, unspecified; Z68.43 Body mass index [BMI] 50.0-59.9, adult; Z79.01 Long term (current) use of anticoagulants ==

== ENCOUNTER → 2019-07-14 | Outpatient (CLI) | payer OTHER | LOC: SJCVC 10:19 | PROVIDERS: ATTEND Internal Medicine Cardiovascular Disease | DX: Z51.81 Encounter for therapeutic drug level monitoring (principal); I25.810 Atherosclerosis of coronary artery bypass graft(s) without angina pectoris; K21.9 Gastro-esophageal reflux disease without esophagitis; E11.9 Type 2 diabetes mellitus without complications; J44.9 Chronic obstructive pulmonary disease, unspecified; I10 Essential (primary) hypertension; M81.0 Age-related osteoporosis without current pathological fracture; E78.5 Hyperlipidemia, unspecified; E66.9 Obesity, unspecified; Z68.43 Body mass index [BMI] 50.0-59.9, adult; Z95.1 Presence of aortocoronary bypass graft; Z86.711 Personal history of pulmonary embolism; Z86.73 Personal history of transient ischemic attack (TIA), and cerebral infarction without residual deficits ==

== ENCOUNTER → 2019-07-18 | Outpatient (CLI) | payer OTHER | LOC: SJCVC 10:25 | PROVIDERS: ATTEND Internal Medicine Cardiovascular Disease | DX: Z51.81 Encounter for therapeutic drug level monitoring (principal); I25.810 Atherosclerosis of coronary artery bypass graft(s) without angina pectoris; K21.9 Gastro-esophageal reflux disease without esophagitis; E11.9 Type 2 diabetes mellitus without complications; J44.9 Chronic obstructive pulmonary disease, unspecified; I10 Essential (primary) hypertension; M81.0 Age-related osteoporosis without current pathological fracture; E78.5 Hyperlipidemia, unspecified; E66.9 Obesity, unspecified; Z68.43 Body mass index [BMI] 50.0-59.9, adult; Z79.01 Long term (current) use of anticoagulants; Z95.1 Presence of aortocoronary bypass graft; Z86.73 Personal history of transient ischemic attack (TIA), and cerebral infarction without residual deficits ==

== ENCOUNTER → 2019-07-21 | Outpatient (CLI) | payer OTHER | LOC: SJCVC 14:16 | PROVIDERS: ATTEND Internal Medicine Cardiovascular Disease | DX: Z51.81 Encounter for therapeutic drug level monitoring (principal); I25.810 Atherosclerosis of coronary artery bypass graft(s) without angina pectoris; E11.9 Type 2 diabetes mellitus without complications; J44.9 Chronic obstructive pulmonary disease, unspecified; I10 Essential (primary) hypertension; M81.0 Age-related osteoporosis without current pathological fracture; M19.90 Unspecified osteoarthritis, unspecified site; E78.5 Hyperlipidemia, unspecified; K21.9 Gastro-esophageal reflux disease without esophagitis; E66.9 Obesity, unspecified; Z95.1 Presence of aortocoronary bypass graft; Z79.01 Long term (current) use of anticoagulants; Z79.4 Long term (current) use of insulin; Z79.82 Long term (current) use of aspirin; Z79.899 Other long term (current) drug therapy; Z86.711 Personal history of pulmonary embolism; Z86.73 Personal history of transient ischemic attack (TIA), and cerebral infarction without residual deficits ==

== ENCOUNTER → 2019-07-30 | Outpatient (CLI) | payer OTHER | LOC: SJCVC 14:05 | PROVIDERS: ATTEND Internal Medicine Cardiovascular Disease | DX: Z51.81 Encounter for therapeutic drug level monitoring (principal); E11.9 Type 2 diabetes mellitus without complications; J44.9 Chronic obstructive pulmonary disease, unspecified; G47.30 Sleep apnea, unspecified; I10 Essential (primary) hypertension; I25.10 Atherosclerotic heart disease of native coronary artery without angina pectoris; Z79.01 Long term (current) use of anticoagulants ==